=== PATIENT | female | born 1945 | race African-American/Black ===

== ENCOUNTER 2016-10-25 09:02 | Emergency (ER) | payer MEDICARE, MEDICAID ==
[~2016-10-25] VITALS: Ht 160 cm; Wt 63.0 kg
[~2016-10-25 09:02] MED LIST: ATOR40TA70 PO; BACL-141 PO; BUDE6HFA PO; CLON0.3T PO; DICY20TA11 PO; DOCU-138 PO; ESOM20CA PO; GABA300C PO; GABA800T PO; HYDR-4134 PO; NITR0.4T3 SL
[2016-10-25] MEDS ORDERED: SODIUM CHLORIDE 0.9% 1,000 ML IV ONE (09:15)
[2016-10-25] MEDS ORDERED: HYDROCODONE/ACETAMINOPHEN 5/325MG TABLET PO ONE (09:15)
[2016-10-25 09:39] LABS: BASOPHILS % 0.6 % (0.0-2.0); EOSINOPHILS % 1.7 % (0.0-5.0); HEMATOCRIT. 33.3 % (36.0-48.0); HEMOGLOBIN. 10.7 g/dL (12.0-16.0); LYMPHOCYTES % 27.1 % (20.0-50.0); MEAN CORPUSCULAR HEMOGLOBIN 26.7 pg (28.0-32.0); MEAN CORPUSCULAR HGB CONC 32.1 g/dL (31.0-37.0); MEAN CORPUSCULAR VOLUME 83.2 fL (81.0-99.0); MEAN PLATELET VOLUME 9.1 fl (7.4-10.4); MONOCYTES % 6.7 % (2.0-8.0); NEUTROPHILS % 63.9 % (40.0-76.0); PLATELET 250 x1000/uL (130-400); RED BLOOD CELL COUNT 4.01 mill/uL (4.2-5.4); RED CELL DISTRIBUTION WIDTH 17.1 % (11.6-14.6); WHITE BLOOD COUNT 10.4 x1000/uL (4.5-11.0)
[2016-10-25 09:43] LABS: INR 1.1; PARTIAL THROMBOPLASTIN TIME 27.6 sec (24.0-34.0); PROTHROMBIN TIME 11.7 sec
[2016-10-25 09:47] LABS: ANION GAP 11; CALCIUM 8.8 mg/dL (8.5-10.1); CARBON DIOXIDE 27 mEq/L (21-32); CHLORIDE 107 mEq/L (98-107); INDEX HEMOLYSI 1 (1-3); INDEX ICTERIC 1 (1-4); INDEX LIPEMIC 1 (1-3); UREA NITROGEN BLOOD 8 mg/dL (7-21); eGFR > 60 mL/min (>60)
[2016-10-25 10:37] VITALS: BP 150/68
== END 2016-10-25 10:58 | disposition home or self-care (01) ==
LOC: ER 09:38
DX: R04.0 Epistaxis (principal); R51 Headache; J45.909 Unspecified asthma, uncomplicated; I10 Essential (primary) hypertension; I50.9 Heart failure, unspecified; J44.9 Chronic obstructive pulmonary disease, unspecified; I48.91 Unspecified atrial fibrillation; K21.9 Gastro-esophageal reflux disease without esophagitis; E11.9 Type 2 diabetes mellitus without complications; Z86.73 Personal history of transient ischemic attack (TIA), and cerebral infarction without residual deficits; Z88.0 Allergy status to penicillin; Z98.890 Other specified postprocedural states
CPT/HCPCS: 36415; 70450; 80048; 85025; 85610; 85730; 86850; 86900; 96360; 99285; J7030

== ENCOUNTER 2017-03-06 17:48 | Emergency (ER) | payer MEDICARE, MEDICAID ==
[~2017-03-06] VITALS: Ht 162.6 cm; Wt 70.0 kg
[~2017-03-06 17:48] MED LIST changes: -NITR0.4T3 SL; +NITR0.4T49 SL
[2017-03-06] MEDS ORDERED: KETOROLAC 30MG/ML VIAL IV STA (18:01)
[2017-03-06] MEDS ORDERED: SODIUM CHLORIDE 0.9% 1,000 ML IV ONE (18:01)
[2017-03-06 18:54] LABS: BASOPHILS % 1.4 % (0.0-2.0); EOSINOPHILS % 1.9 % (0.0-5.0); HEMATOCRIT. 32.8 % (36.0-48.0); HEMOGLOBIN. 10.6 g/dL (12.0-16.0); LYMPHOCYTES % 32.3 % (20.0-50.0); MEAN CORPUSCULAR HEMOGLOBIN 26.6 pg (28.0-32.0); MEAN PLATELET VOLUME 9.1 fl (7.4-10.4); MONOCYTES % 5.1 % (2.0-8.0); NEUTROPHILS % 59.3 % (40.0-76.0); PLATELET 232 x1000/uL (130-400); RED CELL DISTRIBUTION WIDTH 17.3 % (11.6-14.6)
[2017-03-06 18:58] LABS: CHLORIDE 109 mEq/L (98-107)
[2017-03-06 19:01] LABS: INR 1.1; PROTHROMBIN TIME 11.8 sec (9.4-11.6)
[2017-03-06 19:02] LABS: CARBON DIOXIDE 28 mEq/L (21-32)
[2017-03-06 19:40] LABS: CLARITY URINE CLOUDY (CLEAR); COLOR URINE YELLOW (YELLOW); GLUCOSE URINE NEGATIVE (NEGATIVE); KETONES URINE NEGATIVE (NEGATIVE); LEUKOCYTE ESTERASE URINE 3+ (NEGATIVE); NITRITE URINE NEGATIVE (NEGATIVE); OCCULT BLOOD URINE 2+ (NEGATIVE); PH URINE 5.5 (4.5-8.0); PROTEIN URINE TRACE (NEGATIVE); SPECIFIC GRAVITY URINE 1.017 (1.005-1.030); UROBILINOGEN URINE 0.2 E.U./dL (0.2-1.0)
[2017-03-06] MEDS ORDERED: CEFTRIAXONE 1 G PREMIX 50 ML IV ONE (20:15)
[2017-03-06] MEDS ORDERED: HYDROCODONE/ACETAMINOPHEN 5/325MG TABLET PO ONE (20:45)
[2017-03-06 21:20] VITALS: BP 145/87
== END 2017-03-06 21:22 | disposition home or self-care (01) ==
LOC: ER 21:10
DX: N30.01 Acute cystitis with hematuria (principal); K21.9 Gastro-esophageal reflux disease without esophagitis; J44.9 Chronic obstructive pulmonary disease, unspecified; I11.0 Hypertensive heart disease with heart failure; I50.9 Heart failure, unspecified; I48.91 Unspecified atrial fibrillation; E11.9 Type 2 diabetes mellitus without complications; Z86.73 Personal history of transient ischemic attack (TIA), and cerebral infarction without residual deficits; Z95.1 Presence of aortocoronary bypass graft; Z88.0 Allergy status to penicillin; Z88.8 Allergy status to other drugs, medicaments and biological substances
CPT/HCPCS: 36415; 74176; 80053; 81001; 83690; 85025; 85610; 96365; 96375; 99285; J0696; J1885; J7030